=== PATIENT | female | born 1990 | race American Indian/Alaskan Native ===

== ENCOUNTER 2019-05-08 15:00 | Emergency (ER) | payer SELFPAY ==
[~2019-05-08] VITALS: Ht 162.6 cm; Wt 135.0 kg
[~2019-05-08 15:00] MED LIST: CYCL-1 PO; PANT-47 PO; TRAM50TA2 PO
[2019-05-08 15:30] VITALS: BP 131/76
[2019-05-08] MEDS ORDERED: acetaminophen 325mg tablet PO ONE (16:10)
[2019-05-08] MEDS ORDERED: ACET-812 PO (16:11)
[2019-05-08] MEDS ORDERED: CYCL-1 PO (16:11)
[2019-05-08] MEDS ORDERED: HYDR-3965 PO (16:12)
== END 2019-05-08 16:39 | disposition home or self-care (01) ==
LOC: ER 15:01
DX: M54.5 Low back pain (principal); E11.9 Type 2 diabetes mellitus without complications; F41.9 Anxiety disorder, unspecified; Z90.49 Acquired absence of other specified parts of digestive tract; Z79.899 Other long term (current) drug therapy
CPT/HCPCS: 99283

== ENCOUNTER 2019-11-04 02:41 | Emergency (ER) | payer OTHER ==
[~2019-11-04] VITALS: Ht 162.6 cm; Wt 129.0 kg
[~2019-11-04 02:41] MED LIST changes: +ACET-812 PO
[2019-11-04] MEDS ORDERED: normal saline 1000ML IV soln IVB ONE (03:05)
[2019-11-04 03:14] LABS: URINE HCG NEGATIVE (NEG)
[2019-11-04 03:16] LABS: BASOPHILS # (AUTO) 0.1 X10'3 (0-0.2); BASOPHILS % (AUTO) 0.5 % (0-1); EOSINOPHILS # (AUTO) 0.3 X10'3 (0-0.9); EOSINOPHILS % (AUTO) 2.8 % (0-6); HEMATOCRIT 39.6 % (35.0-45.0); HEMOGLOBIN 13.1 g/dl (12.0-16.0); LYMPHOCYTES # (AUTO) 2.8 X10'3 (1.1-4.8); LYMPHOCYTES % (AUTO) 25.4 % (21-51); MEAN CORPUSCULAR HEMOGLOBIN 27.7 PG (27.0-31.0); MEAN CORPUSCULAR HGB CONC 33.2 g/dL (33.0-36.5); MEAN CORPUSCULAR VOLUME 83.3 FL (78-98); MEAN PLATELET VOLUME 8.5 FL (7.4-10.4); MONOCYTES # (AUTO) 0.6 X10'3 (0-0.9); MONOCYTES % (AUTO) 5.7 % (2-12); NEUTROPHILS # (AUTO) 7.3 X10'3 (1.8-7.7); NEUTROPHILS % (AUTO) 65.6 % (42-75); PLATELET COUNT 234 X10'3 (140-440); RED BLOOD COUNT 4.75 X10'6 (4.20-5.60); WHITE BLOOD COUNT 11.2 X10'3 (4.5-11.0)
[2019-11-04 03:37] LABS: ALANINE AMINOTRANSFERASE 46 U/L (12-78); ALBUMIN 3.8 G/DL (3.4-5.0); ALKALINE PHOSPHATASE 108 IU/L (46-116); ANION GAP 6 (8-16); ASPARTATE AMINO TRANSFERASE 24 U/L (10-37); BILIRUBIN,TOTAL 0.3 MG/DL (0.1-1.0); BLOOD UREA NITROGEN 11 MG/DL (7-18); BUN/CREATININE RATIO 11.7 (6.6-38.0); CALCIUM 8.7 MG/DL (8.5-10.1); CHLORIDE 103 MMOL/L (99-107); CREATININE 0.94 MG/DL (0.40-0.90); GLUCOSE 217 MG/DL (70-104); LIPASE 153 U/L (73-393); POTASSIUM 3.9 MMOL/L (3.5-5.1); SODIUM 138 MMOL/L (135-145); TOTAL CARBON DIOXIDE 29.5 MMOL/L (24-32); TOTAL PROTEIN 7.6 G/DL (6.4-8.2); eGFR 70 ML/MIN
[2019-11-04 03:56] LABS: CLARITY,URINE CLOUDY (Clear); COLOR,URINE YELLOW (Yellow); GLUCOSE, URINE NEGATIVE (Neg); KETONES,URINE NEGATIVE (Neg); LEUKOCYTE ESTERASE ,URINE NEGATIVE (Neg); OCCULT BLOOD,URINE LARGE (Neg); PH,URINE 5.5 (4.8-8.0); PROTEIN,URINE 100 mg/dl (Neg)
[2019-11-04 03:59] LABS: UA COLLECTION TYPE CLN CATCH MIDSTREAM
[2019-11-04 04:01] LABS: BACTERIA,URINE FEW /HPF (Neg); NITRITES, URINE NEGATIVE (Neg); RBC,URINE 20-50 /HPF (0-2); SQUAMOUS EPITHELIAL CELL,UR FEW /LPF (FEW); WBC,URINE 0-4 /HPF (0-4)
[2019-11-04 04:24] LABS: AMYLASE 41 U/L (25-115)
[2019-11-04] MEDS ORDERED: FLO0.4C PO (04:56)
[2019-11-04] MEDS ORDERED: CIPR-259 PO (04:56)
[2019-11-04] MEDS ORDERED: tamsulosin 0.4mg capsule PO STA (04:57)
[2019-11-04] MEDS ORDERED: ketorolac tromethamine 15mg/ml inj. IV ONE (05:00)
[2019-11-04] MEDS ORDERED: ciprofloxacin 250mg tablet PO ONE (05:00)
[2019-11-04 05:18] VITALS: BP 121/87
== END 2019-11-04 05:19 | disposition home or self-care (01) ==
LOC: ER 02:42
DX: N13.2 Hydronephrosis with renal and ureteral calculous obstruction (principal); R10.31 Right lower quadrant pain; E11.9 Type 2 diabetes mellitus without complications; Z90.49 Acquired absence of other specified parts of digestive tract; Z79.899 Other long term (current) drug therapy
CPT/HCPCS: 36415; 74176; 80053; 81001; 81025; 82150; 83690; 85025; 96374; 99284; J1885; J7030

== ENCOUNTER 2021-05-10 17:55 | Emergency (ER) | payer MEDICAID ==
[~2021-05-10] VITALS: Ht 162.6 cm; Wt 127.3 kg
[2021-05-10] MEDS ORDERED: ondansetron/PF 4mg/2ml inj IV ONE (18:20)
[2021-05-10] MEDS ORDERED: normal saline 1000ML IV soln IVB ONE ×2 (18:20→20:20)
--- NOTE | 2021-05-10 18:27 | NUR ---
TO CT VIA [facility]
[2021-05-10 19:06] LABS: BASOPHILS % (AUTO) 0.4 % (0-1); EOSINOPHILS # (AUTO) 0.1 X10'3 (0-0.9); EOSINOPHILS % (AUTO) 1.2 % (0-6); HEMATOCRIT 40.3 % (35.0-45.0); HEMOGLOBIN 13.2 g/dl (12.0-16.0); LYMPHOCYTES # (AUTO) 2.3 X10'3 (1.1-4.8); LYMPHOCYTES % (AUTO) 22.6 % (21-51); MEAN CORPUSCULAR HEMOGLOBIN 27.9 PG (27.0-31.0); MEAN CORPUSCULAR HGB CONC 32.9 g/dL (33.0-36.5); MONOCYTES # (AUTO) 0.5 X10'3 (0-0.9); MONOCYTES % (AUTO) 4.9 % (2-12); NEUTROPHILS # (AUTO) 7.4 X10'3 (1.8-7.7); NEUTROPHILS % (AUTO) 70.9 % (42-75); PLATELET COUNT 212 X10'3 (140-440); RED BLOOD COUNT 4.74 X10'6 (4.20-5.60); RED CELL DISTRIBUTION WIDTH 14.1 % (11.5-14.5); WHITE BLOOD COUNT 10.4 X10'3 (4.5-11.0)
[2021-05-10 19:12] LABS: ALANINE AMINOTRANSFERASE 67 U/L (12-78); ALBUMIN 3.8 G/DL (3.4-5.0); ALBUMIN/GLOBULIN RATIO 1.1 (1.1-1.5); ALKALINE PHOSPHATASE 109 IU/L (46-116); ANION GAP 12 (8-16); ASPARTATE AMINO TRANSFERASE 29 U/L (10-37); BILIRUBIN,TOTAL 0.3 MG/DL (0.1-1.0); BLOOD UREA NITROGEN 9 MG/DL (7-18); BUN/CREATININE RATIO 10.7 (6.6-38.0); CALCIUM 8.5 MG/DL (8.5-10.1); CHLORIDE 103 MMOL/L (99-107); CREATININE 0.84 MG/DL (0.40-0.90); GLUCOSE 244 MG/DL (70-104); SODIUM 139 MMOL/L (135-145); TOTAL CARBON DIOXIDE 23.7 MMOL/L (24-32); TOTAL PROTEIN 7.4 G/DL (6.4-8.2); eGFR 79 ML/MIN
[2021-05-10 19:16] LABS: TROPONIN I < 0.04 NG/ML (0.0-0.05)
[2021-05-10 20:19] LABS: URINE AMPHETAMINE SCREEN NEGATIVE (Neg); URINE BARBITUATE SCREEN NEGATIVE (Neg); URINE BENZODIAZEPINES SCREEN NEGATIVE (Neg); URINE CANNABINOID SCREEN NEGATIVE (Neg); URINE COCAINE SCREEN NEGATIVE (Neg); URINE METHADONE SCREEN NEGATIVE (Neg); URINE OPIATE SCREEN NEGATIVE (Neg); URINE PHENCYCLIDINE SCREEN NEGATIVE (Neg)
[2021-05-10] MEDS ORDERED: proCHLORperazine 10 MG/2 ml inj IV ONE (20:20)
[2021-05-10] MEDS ORDERED: cloNIDine 0.1 mg tablet PO ONE (20:20)
[2021-05-10 20:21] LABS: CLARITY,URINE CLEAR (Clear); COLOR,URINE YELLOW (Yellow); GLUCOSE, URINE 500 mg/dl (Neg); KETONES,URINE >=80 mg/dl (Neg); LEUKOCYTE ESTERASE ,URINE TRACE (Neg); NITRITES, URINE NEGATIVE (Neg); OCCULT BLOOD,URINE NEGATIVE (Neg); PROTEIN,URINE TRACE mg/dl (Neg); UA COLLECTION TYPE CLN CATCH MIDSTREAM; UROBILINOGEN,URINE 0.2 E.U/dL (0.2-1.0)
[2021-05-10 20:22] LABS: BACTERIA,URINE NONE SEEN /HPF (Neg); RBC,URINE NONE SEEN /HPF (0-2); SQUAMOUS EPITHELIAL CELL,UR FEW /LPF (FEW); WBC,URINE 0-4 /HPF (0-4)
[2021-05-10] MEDS ORDERED: ONDA4TAB6 PO (20:59)
[2021-05-10 21:30] VITALS: BP 102/79
== END 2021-05-10 21:26 | disposition home or self-care (01) ==
LOC: ER 17:56
DX: I10 Essential (primary) hypertension (principal); R11.2 Nausea with vomiting, unspecified; R42 Dizziness and giddiness; R07.89 Other chest pain; E11.65 Type 2 diabetes mellitus with hyperglycemia; Z90.49 Acquired absence of other specified parts of digestive tract; Z79.899 Other long term (current) drug therapy
CPT/HCPCS: 36415; 70450; 71045; 80053; 80305; 81001; 84484; 85025; 87088; 93005; 96361; 96374; 96375; 99285; J0780; J2405; J7030

== ENCOUNTER 2021-06-08 07:40 | Emergency (ER) | payer MEDICAID ==
[~2021-06-08] VITALS: Ht 162.6 cm; Wt 127.3 kg
[~2021-06-08 07:40] MED LIST changes: +ONDA4TAB6 PO
[2021-06-08 08:54] LABS: BASOPHILS % (AUTO) 0.6 % (0-1); EOSINOPHILS # (AUTO) 0.1 X10'3 (0-0.9); EOSINOPHILS % (AUTO) 1.8 % (0-6); HEMOGLOBIN 15.5 g/dl (12.0-16.0); LYMPHOCYTES # (AUTO) 1.8 X10'3 (1.1-4.8); MEAN CORPUSCULAR HEMOGLOBIN 27.9 PG (27.0-31.0); MEAN CORPUSCULAR HGB CONC 33.1 g/dL (33.0-36.5); MEAN CORPUSCULAR VOLUME 84.4 FL (78-98); MEAN PLATELET VOLUME 8.7 FL (7.4-10.4); MONOCYTES # (AUTO) 0.4 X10'3 (0-0.9); NEUTROPHILS # (AUTO) 4.4 X10'3 (1.8-7.7); NEUTROPHILS % (AUTO) 64.6 % (42-75); PLATELET COUNT 238 X10'3 (140-440); RED BLOOD COUNT 5.56 X10'6 (4.20-5.60); RED CELL DISTRIBUTION WIDTH 13.9 % (11.5-14.5); WHITE BLOOD COUNT 6.7 X10'3 (4.5-11.0)
[2021-06-08 09:11] LABS: ALANINE AMINOTRANSFERASE 149 U/L (12-78); ALBUMIN 3.9 G/DL (3.4-5.0); ALBUMIN/GLOBULIN RATIO 0.7 (1.1-1.5); ALKALINE PHOSPHATASE 100 IU/L (46-116); ANION GAP 11 (8-16); ASPARTATE AMINO TRANSFERASE 122 U/L (10-37); BILIRUBIN,TOTAL 0.8 MG/DL (0.1-1.0); BLOOD UREA NITROGEN 6 MG/DL (7-18); BUN/CREATININE RATIO 6.2 (6.6-38.0); CHLORIDE 99 MMOL/L (99-107); CREATININE 0.97 MG/DL (0.40-0.90); GLUCOSE 261 MG/DL (70-104); POTASSIUM 3.6 MMOL/L (3.5-5.1); SODIUM 136 MMOL/L (135-145); TOTAL CARBON DIOXIDE 26.5 MMOL/L (24-32); TOTAL PROTEIN 9.2 G/DL (6.4-8.2); eGFR 67 ML/MIN
[2021-06-08 09:14] LABS: TROPONIN I < 0.04 NG/ML (0.0-0.05)
[2021-06-08 09:47] LABS: D-DIMER 0.74 MG/L FEU (0-0.50)
[2021-06-08] MEDS ORDERED: normal saline 1000ml 1,000 ML IV ONE (10:10)
[2021-06-08] MEDS ORDERED: iohexol 350MG/ML 100ml bottle IV ONE (10:53)
[2021-06-08] MEDS ORDERED: MESSAGE TO NURSING PO ONE (11:15)
[2021-06-08] MEDS ORDERED: azithromycin 250mg tablet PO ONE (11:20)
[2021-06-08 11:35] VITALS: BP 142/95
[2021-06-08] MEDS ORDERED: AZIT-63 PO (12:04)
== END 2021-06-08 12:52 | disposition home or self-care (01) ==
LOC: ER 07:40
DX: J18.9 Pneumonia, unspecified organism (principal); Z20.822 Contact with and (suspected) exposure to COVID-19; J02.9 Acute pharyngitis, unspecified; R74.01 Elevation of levels of liver transaminase levels; R11.2 Nausea with vomiting, unspecified; R07.89 Other chest pain; R43.8 Other disturbances of smell and taste; R09.89 Other specified symptoms and signs involving the circulatory and respiratory systems; F41.9 Anxiety disorder, unspecified; E11.9 Type 2 diabetes mellitus without complications; Z90.89 Acquired absence of other organs; Z90.49 Acquired absence of other specified parts of digestive tract; Z79.2 Long term (current) use of antibiotics; Z79.899 Other long term (current) drug therapy
CPT/HCPCS: 36415; 71045; 71275; 80053; 84484; 85025; 85379; 87635; 93005; 96360; 99285; C9803; J7030; Q9967

== ENCOUNTER 2021-10-25 20:52 | Emergency (ER) | payer MEDICAID ==
[~2021-10-25] VITALS: Ht 162.6 cm; Wt 125.8 kg
[2021-10-25 22:35] LABS: BASOPHILS # (AUTO) 0.1 X10'3 (0-0.2); BASOPHILS % (AUTO) 0.5 % (0-1); EOSINOPHILS # (AUTO) 0.3 X10'3 (0-0.9); EOSINOPHILS % (AUTO) 2.4 % (0-6); HEMATOCRIT 39.5 % (35.0-45.0); LYMPHOCYTES # (AUTO) 2.9 X10'3 (1.1-4.8); LYMPHOCYTES % (AUTO) 27.2 % (21-51); MEAN CORPUSCULAR HEMOGLOBIN 28.4 PG (27.0-31.0); MEAN CORPUSCULAR VOLUME 86.1 FL (78-98); MEAN PLATELET VOLUME 8.9 FL (7.4-10.4); MONOCYTES # (AUTO) 0.6 X10'3 (0-0.9); MONOCYTES % (AUTO) 5.7 % (2-12); NEUTROPHILS # (AUTO) 6.8 X10'3 (1.8-7.7); NEUTROPHILS % (AUTO) 64.2 % (42-75); PLATELET COUNT 225 X10'3 (140-440); RED BLOOD COUNT 4.59 X10'6 (4.20-5.60); WHITE BLOOD COUNT 10.6 X10'3 (4.5-11.0)
[2021-10-25 22:52] LABS: ALANINE AMINOTRANSFERASE 32 U/L (12-78); ALBUMIN 3.8 G/DL (3.4-5.0); ALKALINE PHOSPHATASE 108 IU/L (46-116); ANION GAP 10 (8-16); ASPARTATE AMINO TRANSFERASE 11 U/L (10-37); BILIRUBIN,TOTAL 0.2 MG/DL (0.1-1.0); BLOOD UREA NITROGEN 11 MG/DL (7-18); BUN/CREATININE RATIO 12.9 (6.6-38.0); CALCIUM 8.8 MG/DL (8.5-10.1); CHLORIDE 103 MMOL/L (99-107); CREATININE 0.85 MG/DL (0.40-0.90); GLUCOSE 342 MG/DL (70-104); POTASSIUM 3.9 MMOL/L (3.5-5.1); SODIUM 139 MMOL/L (135-145); TOTAL CARBON DIOXIDE 26.2 MMOL/L (24-32); TOTAL PROTEIN 7.6 G/DL (6.4-8.2); eGFR 78 ML/MIN
[2021-10-26 03:47] VITALS: BP 116/68
[2021-10-26] MEDS ORDERED: insulin regular, human 10 units/0.1 ml syringe SQ ONE ×2 (03:55→04:00)
[2021-10-26] MEDS ORDERED: metFORMIN 500mg tablet PO ONE (03:55)
[2021-10-26] MEDS ORDERED: acetaminophen 325mg tablet PO ONE (03:55)
[2021-10-26] MEDS ORDERED: aspirin 81mg tab.chew PO ONE (03:55)
[2021-10-26] MEDS ORDERED: NAPR-56 PO (03:59)
[2021-10-26] MEDS ORDERED: METF-900 PO (03:59)
== END 2021-10-26 04:35 | disposition home or self-care (01) ==
LOC: ER 20:53
DX: R07.89 Other chest pain (principal); M79.602 Pain in left arm; E11.65 Type 2 diabetes mellitus with hyperglycemia; Z87.19 Personal history of other diseases of the digestive system; Z90.49 Acquired absence of other specified parts of digestive tract; Z79.899 Other long term (current) drug therapy
CPT/HCPCS: 36415; 71045; 80053; 82948; 83880; 84484; 85025; 93005; 96372; 99285; J1815

== ENCOUNTER 2022-04-12 11:35 | Emergency (ER) | payer SELFPAY ==
[2022-04-12 11:39] VITALS: BP 146/106
[2022-04-12 12:36] LABS: URINE HCG NEGATIVE (NEG)
[2022-04-12 12:39] LABS: CLARITY,URINE SLIGHTLY CLOUDY (Clear); GLUCOSE, URINE NEGATIVE (Neg); KETONES,URINE >=80 mg/dl (Neg); LEUKOCYTE ESTERASE ,URINE SMALL (Neg); NITRITES, URINE NEGATIVE (Neg); OCCULT BLOOD,URINE TRACE-INTACT (Neg); PROTEIN,URINE TRACE mg/dl (Neg); UROBILINOGEN,URINE 0.2 E.U/dL (0.2-1.0)
[2022-04-12] MEDS ORDERED: CefTRIAXone 1000mg IM Kit (w/lidocaine diluent) IM STA (12:53)
[2022-04-12] MEDS ORDERED: azithromycin 250mg tablet PO ONE (12:55)
[2022-04-12 13:00] LABS: COLOR,URINE DARK YELLOW (Yellow); UA COLLECTION TYPE CLN CATCH MIDSTREAM
[2022-04-12 13:02] LABS: BACTERIA,URINE 2+ /HPF (Neg); MUCUS STRANDS MODERATE /LPF (Neg); RBC,URINE 0-2 /HPF (0-2); RENAL CELLS, URINE FEW /HPF; SQUAMOUS EPITHELIAL CELL,UR MODERATE /LPF (FEW); TRANSITIONAL EPI CELLS,URINE FEW /HPF
[2022-04-12 13:03] LABS: WBC CLUMPS,URINE FEW /HPF (NEGATIVE)
--- NOTE | 2022-04-16 11:56 | NUR ---
PT CALLED REGARDING VISIT ON 04/12/22 AND LAB RESULTS, NO ANSWER AND MSG LEFT TO RETURN CALL.
== END 2022-04-12 13:25 | disposition home or self-care (01) ==
LOC: ER 11:35
DX: N89.8 Other specified noninflammatory disorders of vagina (principal); R31.9 Hematuria, unspecified; R30.0 Dysuria; E11.9 Type 2 diabetes mellitus without complications; F41.9 Anxiety disorder, unspecified; Z90.49 Acquired absence of other specified parts of digestive tract; Z79.899 Other long term (current) drug therapy; Z87.19 Personal history of other diseases of the digestive system; Z98.890 Other specified postprocedural states
CPT/HCPCS: 36415; 81001; 81025; 82948; 87077; 87088; 87186; 87491; 87591; 96372; 99283; J0696; Q0112

== ENCOUNTER 2022-05-11 20:24 | Emergency (ER) | payer SELFPAY ==
[~2022-05-11] VITALS: Ht 162.6 cm; Wt 116.3 kg
[2022-05-11 21:34] VITALS: BP 113/81
[2022-05-11] MEDS ORDERED: triamcinolone acetonide 40mg/ml inj IM ONE (22:55)
[2022-05-11] MEDS ORDERED: LIDOcaine 1% w/EPI 1:100,000 30ml vial (MDV) IJ ONE (22:55)
== END 2022-05-12 | disposition home or self-care (01) ==
LOC: ER 20:25
DX: M25.512 Pain in left shoulder (principal); E11.9 Type 2 diabetes mellitus without complications; Z98.890 Other specified postprocedural states; Z90.49 Acquired absence of other specified parts of digestive tract
CPT/HCPCS: 20610; 82948; 99283

== ENCOUNTER 2022-09-21 13:34 | Emergency (ER) | payer OTHER ==
[~2022-09-21] VITALS: Ht 162.6 cm; Wt 120.5 kg
[2022-09-21 13:43] VITALS: BP 138/72
[2022-09-21 15:10] LABS: GLUCOMETER-C 222 mg/dl (70-104)
[2022-09-21] MEDS: normal saline 1000ML IV soln IVB ONE (15:20)
[2022-09-21] MEDS: meclizine 12.5mg tablet PO ONE (15:21)
[2022-09-21] MEDS ORDERED: MECL-159 PO (17:29)
== END 2022-09-21 17:37 | disposition home or self-care (01) ==
LOC: ER 13:34
DX: R42 Dizziness and giddiness (principal); G43.909 Migraine, unspecified, not intractable, without status migrainosus; Z87.798 Personal history of other (corrected) congenital malformations; Z90.49 Acquired absence of other specified parts of digestive tract; Z98.890 Other specified postprocedural states
CPT/HCPCS: 70450; 82948; 96360; 99284; J7030; J8597

== ENCOUNTER 2022-11-27 15:01 | Emergency (ER) | payer SELFPAY ==
[~2022-11-27] VITALS: Ht 162.6 cm; Wt 120.5 kg
[~2022-11-27 15:01] MED LIST changes: +MECL-159 PO
[2022-11-27 15:23] VITALS: BP 130/87
[2022-11-27] MEDS ORDERED: HYDR-3965 PO (15:50)
[2022-11-27] MEDS ORDERED: IBUP-1986 PO (15:50)
[2022-11-27] MEDS ORDERED: HYDROcodone/acetaminophen 10/325mg tab PO ONE (15:55)
[2022-11-27] MEDS ORDERED: ketorolac trometh inj. 60 MG/2 ML VIAL IM ONE (15:55)
== END 2022-11-27 16:56 | disposition home or self-care (01) ==
LOC: ER 15:02
DX: S20.212A Contusion of left front wall of thorax, initial encounter (principal); G43.909 Migraine, unspecified, not intractable, without status migrainosus; E11.9 Type 2 diabetes mellitus without complications; F41.9 Anxiety disorder, unspecified; Z90.49 Acquired absence of other specified parts of digestive tract; Z79.899 Other long term (current) drug therapy; Z79.1 Long term (current) use of non-steroidal anti-inflammatories (NSAID); Z79.2 Long term (current) use of antibiotics; X58.XXXA Exposure to other specified factors, initial encounter; Y93.89 Activity, other specified; Y92.89 Other specified places as the place of occurrence of the external cause; Y99.8 Other external cause status
CPT/HCPCS: 96372; 99283; J1885

== ENCOUNTER 2023-01-27 11:03 | Emergency (ER) | payer MEDICAID ==
[~2023-01-27] VITALS: Ht 162.6 cm; Wt 125.0 kg
[~2023-01-27 11:03] MED LIST changes: +IBUP-1986 PO
[2023-01-27 11:08] VITALS: BP 136/93
[2023-01-27] MEDS ORDERED: dexamethasone sod phosphate 10mg/ml inj IM STA (12:23)
[2023-01-27] MEDS ORDERED: ketorolac trometh inj. 60 MG/2 ML VIAL IM ONE (12:25)
[2023-01-27] MEDS ORDERED: TRAM50TA2 PO (13:09)
== END 2023-01-27 13:19 | disposition home or self-care (01) ==
LOC: ER 11:03
DX: M54.41 Lumbago with sciatica, right side (principal)
CPT/HCPCS: 72100; 96372; 99284; J1100; J1885

== ENCOUNTER 2024-09-18 07:58 | Emergency (ER) | payer SELFPAY ==
[~2024-09-18] VITALS: Ht 162.6 cm; Wt 121.4 kg
[~2024-09-18 07:58] MED LIST changes: -MECL-159 PO; +MECL-302 PO
[2024-09-18 08:04] VITALS: BP 158/90; PULSE 90; RESP 16; TEMP 97.8; O2SAT 98
[2024-09-18] MEDS ORDERED: AMOX-117 PO (09:35)
== END 2024-09-18 10:10 | disposition home or self-care (01) ==
LOC: ER 07:59
DX: K08.89 Other specified disorders of teeth and supporting structures (principal); H92.02 Otalgia, left ear; E11.9 Type 2 diabetes mellitus without complications; Z79.899 Other long term (current) drug therapy; Z79.1 Long term (current) use of non-steroidal anti-inflammatories (NSAID); Z87.19 Personal history of other diseases of the digestive system; Z90.49 Acquired absence of other specified parts of digestive tract
CPT/HCPCS: 99283

== ENCOUNTER 2024-11-11 07:15 | Emergency (ER) | payer SELFPAY ==
[~2024-11-11] VITALS: Ht 162.6 cm; Wt 116.5 kg
[2024-11-11 08:06] VITALS: BP 144/90; PULSE 93; O2SAT 98
[2024-11-11] MEDS: diazepam 5mg tablet PO ONE (08:17)
[2024-11-11 08:18] VITALS: RESP 18
[2024-11-11] MEDS: ketorolac trometh 15mg/ml vial 15 MG/ML ML IM ONE (08:18)
[2024-11-11] MEDS: OLANZapine **IM** 10 mg inj. IM ONE (08:18)
[2024-11-11] MEDS: acetaminophen 325mg tablet PO ONE (08:18)
[2024-11-11 10:06] VITALS: TEMP 97.8
[2024-11-11] MEDS ORDERED: BUTA-245 PO (20:30)
[2024-11-11] MEDS ORDERED: GLIP5TAB23 PO (20:30)
== END 2024-11-11 10:08 | disposition home or self-care (01) ==
LOC: ER 07:17
DX: G43.909 Migraine, unspecified, not intractable, without status migrainosus (principal); E11.9 Type 2 diabetes mellitus without complications; F41.9 Anxiety disorder, unspecified; Z90.49 Acquired absence of other specified parts of digestive tract; Z79.1 Long term (current) use of non-steroidal anti-inflammatories (NSAID); Z79.899 Other long term (current) drug therapy
CPT/HCPCS: 96372; 99284; J1885; J3490

== ENCOUNTER 2024-11-11 15:54 | Emergency (ER) | payer MEDICAID ==
[~2024-11-11] VITALS: Ht 162.6 cm; Wt 117.5 kg
[2024-11-11] MEDS: butalbital 50MG/acetaminophen 300MG/caffeine 40MG (Fioricet) CAPSULE PO ONE (19:57)
[2024-11-11] MEDS: insulin regular, human 10 units/0.1 ml syringe SQ ONE (20:00)
[2024-11-11 20:13] VITALS: BP 155/98; PULSE 87; RESP 16; TEMP 87; O2SAT 100
[2024-11-11] MEDS ORDERED: BUTA-245 PO (20:30)
[2024-11-11] MEDS ORDERED: GLIP5TAB23 PO (20:30)
== END 2024-11-11 20:37 | disposition home or self-care (01) ==
LOC: ER 15:54
DX: G43.909 Migraine, unspecified, not intractable, without status migrainosus (principal); E11.65 Type 2 diabetes mellitus with hyperglycemia; F41.9 Anxiety disorder, unspecified; Z90.49 Acquired absence of other specified parts of digestive tract; Z87.19 Personal history of other diseases of the digestive system
CPT/HCPCS: 82948; 96372; 99283; J1815